=== PATIENT | female | born 1955 | race Caucasian/White ===

== ENCOUNTER 2018-09-13 05:23 | Emergency (ER) | payer MEDICARE, MEDICAID ==
[~2018-09-13] VITALS: Ht 165.1 cm; Wt 100.0 kg
[~2018-09-13 05:23] MED LIST: ACTOS15 MG PO; AMOXICILLIN500 MG OR; CLARITIN10 M1 OR; DEPAKOTE250 MG OR; DIOVAN160 MG OR; DIOVAN40 MG OR; DITROPAN OR; GLIPIZIDE ER5 MG OR; HYDROCHLOROT25 MG OR; LORTAB 5 OR; METFORMIN1000 MG OR; NAPROSYN375 MG PO; PAXIL20 MG OR; SEROQUEL50 MG OR; ZOFRAN4 MG OR
[2018-09-13 06:00] LABS: HEMATOCRIT 40.2 % (37.0-47.0); HEMOGLOBIN 13.1 g/dl (12.0-16.0); IMMATURE GRANULOCYTES 0.3 % (0.0-5.0); MEAN CELL VOLUME 84.5 fL CALC (80.0-100.0); MEAN CORPUSCULAR HGB 27.5 pG CALC (26.0-32.0); MEAN CORPUSCULAR HGB CONC 32.6 g/L CALC (32.0-36.0); NEUT# 8.02 thou/uL (2.00-7.15); RED BLOOD COUNT 4.76 mill/uL (4.20-5.60); RED CELL DISTRI WIDTH 14.6 % (11.5-15.5)
[2018-09-13 06:15] LABS: ALBUMIN 3.8 g/dL (3.2-5.0); ALKALINE PHOSPHATASE 84 u/l (38-126); AMYLASE 36 u/l (30-110); ANION GAP 15 (6-22 (CALC)); BILIRUBIN, TOTAL 1.1 mg/dL (0.0-1.4); BUN 15 mg/dL (8-23); BUN/CREATININE RATIO 38 (12-20 (CALC)); CARBON DIOXIDE 22 mmol/l (22-30); CHLORIDE 104 mmol/l (95-108); CREATININE 0.4 mg/dL (0.5-1.0); GFR > 60 ML/MIN (>=60 (CALC)); GFR FOR AFR.AMER. > 60 ML/MIN (>=60 (CALC)); LIPASE 127 u/l (23-300); POTASSIUM 4.5 mmol/l (3.5-5.1); SODIUM 138 mmol/l (137-146); TOTAL PROTEIN 6.8 g/dL (6.3-8.2)
[2018-09-13 06:18] LABS: SGOT/AST 54 u/l (9-36)
[2018-09-13 06:23] LABS: INTERNATIONAL NORMALIZED RATIO 1.1 RATIO (0.7-1.3); PROTHROMBIN TIME 11.2 SECONDS (9.0-12.5)
[2018-09-13] MEDS ORDERED: LOSARTAN POT100 MG PO (06:24)
[2018-09-13 06:28] LABS: MYOGLOBIN 17 ng/mL (0 - 62)
[2018-09-13 08:35] VITALS: BP 132/91
== END 2018-09-13 08:35 | disposition short-term general hospital (02) ==
LOC: ED 05:23
PROVIDERS: Emergency Medicine
DX: I48.91 Unspecified atrial fibrillation (principal); R10.13 Epigastric pain; E11.65 Type 2 diabetes mellitus with hyperglycemia; I50.9 Heart failure, unspecified; F17.200 Nicotine dependence, unspecified, uncomplicated; Z88.6 Allergy status to analgesic agent

== ENCOUNTER → 2018-12-27 | Outpatient (REF) | payer MEDICARE, MEDICAID ==
[~2018-12-27] MED LIST changes: +LOSARTAN POT100 MG PO
[2018-12-27 10:59] LABS: ALKALINE PHOSPHATASE 66 u/l (38-126); ANION GAP 16 (6-22 (CALC)); BILIRUBIN, TOTAL 0.6 mg/dL (0.0-1.4); BUN 15 mg/dL (8-23); BUN/CREATININE RATIO 25 (12-20 (CALC)); CALCULATED LDLCHOLESTEROL 76 mg/dL (62-129 (CALC)); CHLORIDE 94 mmol/l (95-108); CHOLESTEROL HDL RATIO 2.7 (<4.4 (CALC)); CREATININE 0.6 mg/dL (0.5-1.0); GFR > 60 ML/MIN (>=60 (CALC)); GFR FOR AFR.AMER. > 60 ML/MIN (>=60 (CALC)); HDL CHOLESTEROL 66 mg/dL (>=40); SGOT/AST 19 u/l (9-36); SODIUM 136 mmol/l (137-146); TOTAL CHOLESTEROL 175 mg/dl (0-199); TOTAL PROTEIN 8.1 g/dL (6.3-8.2); TOTAL TRIGLYCERIDES 167 mg/dl (30-149); VLDL CHOLESTROL 33 mg/dl (1-41 (CALC))
[2018-12-27 11:00] LABS: ALBUMIN 4.7 g/dL (3.2-5.0); CARBON DIOXIDE 31 mmol/l (22-30); POTASSIUM 5.3 mmol/l (3.5-5.1)
[2018-12-27 11:28] LABS: TSH, 3RD GENERATION 3.59 uIU/mL (0.47 - 4.68)
== END | disposition home or self-care (01) ==
LOC: LAB 08:47
PROVIDERS: ATTEND Internal Medicine
DX: I48.91 Unspecified atrial fibrillation (principal); I10 Essential (primary) hypertension; I50.9 Heart failure, unspecified; Z79.899 Other long term (current) drug therapy; E78.00 Pure hypercholesterolemia, unspecified; E11.9 Type 2 diabetes mellitus without complications

== ENCOUNTER 2023-05-31 23:47 | Emergency (ER) | payer MEDICARE, MEDICAID ==
[~2023-05-31] VITALS: Ht 165.1 cm; Wt 73.0 kg
[2023-06-01] VITALS (13 sets, daily range): BP systolic 103–144; BP diastolic 52–76
[2023-06-01 00:44] LABS: BASO% 0.3 % (0-3); EOS% 0.2 % (0-8); IMMATURE GRANULOCYTES 0.1 % (0.0-5.0); LYMPH% 16.9 % (15-41); MEAN CELL VOLUME 86.5 fL CALC (80.0-100.0); MEAN CORPUSCULAR HGB CONC 32.3 g/dL CAL (32.0-36.0); MONO% 12.1 % (2-13); NEUT# 8.25 thou/uL (2.00-7.15); NEUT% 70.4 % (42-76); RED BLOOD COUNT 4.29 mill/uL (4.20-5.60); RED CELL DISTRI WIDTH 13.8 % (11.5-15.5)
[2023-06-01 00:53] LABS: HEMATOCRIT 37.1 % (37.0-47.0)
[2023-06-01 01:03] LABS: ALBUMIN 3.8 g/dL (3.2-5.0); BILIRUBIN, TOTAL 0.7 mg/dL (0.02-1.3); BUN 12 mg/dL (8-23); BUN/CREATININE RATIO 18 (12-20 (CALC)); CARBON DIOXIDE 26 mmol/l (22-30); CHLORIDE 94 mmol/l (95-108); CREATININE 0.6 mg/dL (0.5-1.0); GFR FOR AFR.AMER. > 60 ML/MIN (>=60 (CALC)); GFR OTHER RACES > 60 ML/MIN (>=60 (CALC)); POTASSIUM 4.2 mmol/l (3.5-5.1); SGOT/AST 41 u/l (9-36); TOTAL PROTEIN 7.1 g/dL (6.3-8.2)
[2023-06-01 01:09] LABS: ALKALINE PHOSPHATASE 44 u/l (38-126); ANION GAP 10 (6-22 (CALC)); SODIUM 126 mmol/l (137-146)
[2023-06-01 01:54] LABS: URINE BILIRUBIN - DIPSTICK Negative (NEGATIVE); URINE BLOOD DIPSTICK Trace-intact (NEGATIVE); URINE GLUCOSE - DIPSTICK Negative (NEGATIVE); URINE KETONE Negative (NEGATIVE); URINE NITRITE - DIPSTICK Positive (Negative); URINE PH 6.5 (4.5-8.0); URINE SPECIFIC GRAVITY <=1.005
[2023-06-01 02:02] LABS: URINE COLOR Yellow; URINE LEUK ESTERASE Small (NEGATIVE); URINE PROTEIN - DIPSTICK Negative (NEG-TRACE)
[2023-06-01 02:04] LABS: URINE BACTERIA MANY hpf; URINE EPITHELIAL CELLS RARE EPI/hpf (0-FEW)
[2023-06-01] MEDS ORDERED: ULTRAM50 MG PO (03:26)
[2023-06-01] MEDS ORDERED: CEPHALEXIN500 MG PO (03:26)
== END 2023-06-01 07:33 | disposition home or self-care (01) ==
LOC: ED 23:47
PROVIDERS: Emergency Medicine
DX: N39.0 Urinary tract infection, site not specified (principal); B96.20 Unspecified Escherichia coli [E. coli] as the cause of diseases classified elsewhere; S00.93XA Contusion of unspecified part of head, initial encounter; I10 Essential (primary) hypertension; E11.9 Type 2 diabetes mellitus without complications; W19.XXXA Unspecified fall, initial encounter; Z79.84 Long term (current) use of oral hypoglycemic drugs; Z20.822 Contact with and (suspected) exposure to COVID-19

== ENCOUNTER 2024-12-01 10:25 | Observation (INO) | payer MEDICARE, MEDICAID ==
[2024-12-01] VITALS (21 sets, daily range): BP systolic 61–151; BP diastolic 46–100
[~2024-12-01] VITALS: Ht 165.1 cm; Wt 70.1 kg
[~2024-12-01 10:25] MED LIST changes: +CEPHALEXIN500 MG PO; +ULTRAM50 MG PO
--- NOTE | 2024-12-01 10:30 | NUR ---
PATIENT TO ROOM 6 VIA EMS
[2024-12-01 11:15] LABS: ALKALINE PHOSPHATASE 81 u/l (38-126); BUN 19 mg/dL (8-23); BUN/CREATININE RATIO 19 (12-20 (CALC)); CHLORIDE 95 mmol/l (95-108); ESTIMATED GFR 60 ML/MIN (>=90 (CALC)); POTASSIUM 4.5 mmol/l (3.5-5.1); SODIUM 134 mmol/l (137-146)
[2024-12-01 11:17] LABS: BASO% 0.6 % (0-3); EOS% 0.2 % (0-8); HEMATOCRIT 47.6 % (37.0-47.0); HEMOGLOBIN 14.8 g/dl (12.0-16.0); IMMATURE GRANULOCYTES 0.3 % (0.0-5.0); LYMPH% 17.3 % (15-41); MEAN CELL VOLUME 87.7 fL CALC (80.0-100.0); MEAN CORPUSCULAR HGB 27.3 pG CALC (26.0-32.0); MEAN CORPUSCULAR HGB CONC 31.1 g/dL CAL (32.0-36.0); MONO% 12.8 % (2-13); NEUT# 5.94 thou/uL (2.00-7.15); NEUT% 68.8 % (42-76); RED BLOOD COUNT 5.43 mill/uL (4.20-5.60); RED CELL DISTRI WIDTH 13.5 % (11.5-15.5)
[2024-12-01] MEDS ORDERED: cefTRIAXone SODIUM 2 GM in SODIUM CHLORIDE 0.9% 100 ML IV ONE (11:40)
[2024-12-01] MEDS ORDERED: SODIUM CHLORIDE 0.9% 1,000 ML IV ONE (11:40)
[2024-12-01 11:44] LABS: ALBUMIN 4.6 g/dL (3.2-5.0); ANION GAP 19 (6-22 (CALC)); CARBON DIOXIDE 25 mmol/l (22-30); SGOT/AST 88 u/l (9-36); TOTAL PROTEIN 8.5 g/dL (6.3-8.2)
[2024-12-01 11:49] LABS: URINE BLOOD DIPSTICK Trace-intact (NEGATIVE); URINE GLUCOSE - DIPSTICK Negative (NEGATIVE); URINE KETONE 40 mg/dL (NEGATIVE); URINE PROTEIN - DIPSTICK >=300 mg/dL (NEG-TRACE); URINE SPECIFIC GRAVITY 1.025
[2024-12-01 11:51] LABS: URINE COLOR Yellow; URINE LEUK ESTERASE Small (NEGATIVE); URINE NITRITE - DIPSTICK Positive (Negative)
[2024-12-01 11:56] LABS: URINE BACTERIA MANY hpf; URINE SQUAMOUS EPITHELIAL CELL FEW EPI/hpf (0-FEW); URINE WBC 50-100 WBC/hpf (0-5)
[2024-12-01 11:57] LABS: URINE HYALINE CAST FEW lpf (NONE-RARE)
[2024-12-01] MEDS ORDERED: FUROSEMIDE 40 MG/4 ML SDV IV ONE (12:15)
[2024-12-01] MEDS ORDERED: ELIQUIS5 MG PO (12:19)
[2024-12-01] MEDS ORDERED: AMIODARONE HYD200 MG PO (12:20)
[2024-12-01] MEDS ORDERED: ATORVASTATIN CA20 MG PO (12:21)
[2024-12-01] MEDS ORDERED: PEPCID20 MG PO (12:22)
[2024-12-01] MEDS ORDERED: OXYBUTYNIN CHLOR5 M1 PO (12:23)
[2024-12-01] MEDS ORDERED: GLIPIZIDE ER5 M1 PO (12:24)
[2024-12-01] MEDS ORDERED: ARICEPT10 MG PO (12:25)
[2024-12-01] MEDS ORDERED: ALENDRONATE SOD70 MG PO (12:28)
[2024-12-01 13:10] LABS: CPK 30 u/l (30-135)
[2024-12-01] MEDS ORDERED: MAGNESIUM HYDROXIDE 30 ML UDC PO PRN (14:00)
[2024-12-01] MEDS ORDERED: ACETAMINOPHEN 325 MG/TAB PO PRN (14:00)
--- NOTE | 2024-12-01 14:21 | NUR ---
PATIENT ASSISTED TO POSITION OF COMFORT, MEAL TRAY SERVED.
--- NOTE | 2024-12-01 14:44 | NUR ---
BEDSIDE PATIENT CARE SUMMARY TO CHASIDY ELDRIDGE
--- NOTE | 2024-12-01 16:50 | NUR ---
PATIENT PROVIDED WITH CHANGE OF ADULT BRIEF AND PERICARE.
[2024-12-01] MEDS ORDERED: INSULIN LISPRO 100 UNITS/ML ML SC SCH (17:00)
[2024-12-01] MEDS ORDERED: valACYclovir 500 MG TAB PO SCH (17:00)
--- NOTE | 2024-12-01 17:00 | NUR ---
PATIENT TAKEN TO ICU.
--- NOTE | 2024-12-01 18:27 | NUR ---
REPORT RECEIVED FROM LEV LOPEZ ARRIVED ON UNIT @ [id number], ORIENTED TO PERSON AND PLACE, NO C/O PAIN AT THIS TIME, TELE MONITORING IN PROGRESS. SETTLE IN BED, ORIENTED TO ROOM AND CALL [facility].
[2024-12-01] MEDS ORDERED: FUROSEMIDE 40 MG/4 ML SDV IV SCH (21:00)
[2024-12-01] MEDS ORDERED: ENOXAPARIN SODIUM 40 MG/0.4 ML SYR SC SCH (21:00)
[2024-12-01] MEDS ORDERED: DONEPEZIL HCL 5 MG/TAB PO SCH (21:00)
[2024-12-01] MEDS ORDERED: APIXABAN BASE 5 MG TAB PO SCH (21:00)
[2024-12-01] MEDS ORDERED: VALPROIC ACID 250 MG/CAP PO SCH (21:00)
[2024-12-01] MEDS ORDERED: ATORVASTATIN CALCIUM 20 MG/TAB PO SCH (21:00)
--- NOTE | 2024-12-01 21:00 | NUR ---
awake. denies distress. red blistery shingle type areas cont on rt breast around to spine. po fluids taken well. pure wick placed. fall & airborne precautions cont.
[2024-12-02] VITALS (22 sets, daily range): BP systolic 87–158; BP diastolic 50–89
--- NOTE | 2024-12-02 00:01 | NUR ---
eyes closed. no distress.
--- NOTE | 2024-12-02 04:10 | NUR ---
lab here. blood drawn.
[2024-12-02 04:52] LABS: BASO% 0.5 % (0-3); EOS% 0.6 % (0-8); IMMATURE GRANULOCYTES 0.2 % (0.0-5.0); LYMPH% 22.9 % (15-41); MEAN CELL VOLUME 87.1 fL CALC (80.0-100.0); MEAN CORPUSCULAR HGB 27.6 pG CALC (26.0-32.0); MEAN CORPUSCULAR HGB CONC 31.6 g/dL CAL (32.0-36.0); MONO% 17.7 % (2-13); NEUT# 3.69 thou/uL (2.00-7.15); NEUT% 58.1 % (42-76); RED BLOOD COUNT 4.5 mill/uL (4.20-5.60); RED CELL DISTRI WIDTH 13.9 % (11.5-15.5)
[2024-12-02 04:56] LABS: CREATININE 1.5 mg/dL (0.5-1.0); MAGNESIUM 1.9 mg/dL (1.6-2.3)
[2024-12-02 05:09] LABS: HEMATOCRIT 39.2 % (37.0-47.0); HEMOGLOBIN 12.4 g/dl (12.0-16.0)
[2024-12-02 05:15] LABS: ALBUMIN 3.3 g/dL (3.2-5.0); BILIRUBIN, TOTAL 0.4 mg/dL (0.02-1.3); TOTAL PROTEIN 6.3 g/dL (6.3-8.2)
--- NOTE | 2024-12-02 07:15 | NUR ---
PT LAYING IN BED RESTING WITH EYES CLOSED, AROUSES EASILY TO VERBAL STIMULI, PUPILS PERRL, RESP. EVEN AND UNLABORED, LUNG SOUNDS ARE CLEAR, 2L O2 VIA NC, NORMAL S1 S2 HEART SOUNDS, ABD DISTENDED AND SOFT WITH ACTIVE BOWEL SOUNDS, 20G RAC IV SL, STRONG RADIAL AND PEDAL PULSES, SAFETY MEASURES REINFORCED, CALL [facility] WITHIN REACH
[2024-12-02] MEDS ORDERED: HYDROcodone 5 MG/Acetaminophen 325 MG/COMBO PO PRN (07:40)
[2024-12-02] MEDS ORDERED: OXYBUTYNIN 5 MG/TAB PO SCH (09:00)
[2024-12-02] MEDS ORDERED: FAMOTIDINE 20 MG/TAB PO SCH (09:00)
[2024-12-02] MEDS ORDERED: AMIODARONE 200 MG/TAB PO SCH (09:00)
[2024-12-02] MEDS ORDERED: PARoxetine 10 MG/TAB PO SCH (09:00)
--- NOTE | 2024-12-02 12:00 | NUR ---
PT ASSISTED WITH GETTTING SETUP FOR LUNCH, ALL MONITORING EQUIPMENT REAPPLIED, PT REMINDED NOT TO REMOVE MONITORING EQUIPMENT, PT VERBALIZED UNDERSTANDING, SAFETY MEASURES REINFORCED, CALL [facility] WITHIN REACH
--- NOTE | 2024-12-02 16:00 | NUR ---
PT LAYING IN BED WATCHING TV, NO S/S OF DISTRESS AT THIS TIME, PT REMINDED TO CALL FOR ASSISTANCE, CALL [facility] WITHIN REACH
--- NOTE | 2024-12-02 19:45 | NUR ---
awake. denies acute pain. shingles cont to rt chest around to spine. cardiac cath rn was off & replaced. cardiac monitr shows sinus rhythm pvcs. po fluids taken well. purewick cath in place. urine yellow. fall precautions, bed alarm & airborne precautions cont.
--- NOTE | 2024-12-02 23:00 | NUR ---
pt has removed bp cuff, tank charger & pulse ox.
--- NOTE | 2024-12-02 23:54 | NUR ---
eyes closed. no distress. purewick draining well.
[2024-12-03] VITALS (13 sets, daily range): BP systolic 108–151; BP diastolic 67–108
--- NOTE | 2024-12-03 04:00 | NUR ---
lab here. blood drawn.
[2024-12-03 05:40] LABS: HEMATOCRIT 38.9 % (37.0-47.0); HEMOGLOBIN 12.6 g/dl (12.0-16.0); MEAN CELL VOLUME 85.1 fL CALC (80.0-100.0); MEAN CORPUSCULAR HGB 27.6 pG CALC (26.0-32.0); MEAN CORPUSCULAR HGB CONC 32.4 g/dL CAL (32.0-36.0); RED BLOOD COUNT 4.57 mill/uL (4.20-5.60); RED CELL DISTRI WIDTH 13.8 % (11.5-15.5)
[2024-12-03 05:44] LABS: ALBUMIN 3.7 g/dL (3.2-5.0); BILIRUBIN, TOTAL 0.5 mg/dL (0.02-1.3); CREATININE 0.8 mg/dL (0.5-1.0); MAGNESIUM 1.5 mg/dL (1.6-2.3); POTASSIUM 3.6 mmol/l (3.5-5.1)
--- NOTE | 2024-12-03 07:53 | NUR ---
PT REPORT RECEIVED FROM INSPECTOR WELDED PARTS, STATES SHE WAS VERY CONFUSED LAST NIGHT, WALKED INTO ROOM SHE HAD TAKEN ALL HER MONITER LEADS OFF AND PULLED OUT HER IV AND PULLED THE SUCTION CANISTER OFF THE WALL FOR THE PUREWICK HAD IT UPSIDE DOWN ON BED,. PT IS ALERT ONLY. VITAL SIGNS STABLE WHEN SHE WILL LEAVE MONITER LEADS ON
[2024-12-03] MEDS ORDERED: MAGNESIUM SULFATE HEPTAHYDRATE 50 ML IV SCH (08:00)
[2024-12-03] MEDS ORDERED: FUROSEMIDE 40 MG/TAB PO SCH (09:00)
--- NOTE | 2024-12-03 09:25 | NUR ---
new iv placed in right forearm, wrapped coban around it. tried to reoriente pt. went to nurses sstation to answer phone call, went back into room and pt had taken iv out and taken off leads for cardiac moniter and pulse ox. was pulling on tubing for her purewick. placed leads back on and placed pt back into bed with side rails up
--- NOTE | 2024-12-03 11:06 | NUR ---
pt wont stop pulling every moniter lead off that staff places off. gave washcloths to fold to try and reorient pt, but does not work at this time
--- NOTE | 2024-12-03 13:25 | NUR ---
PT SLEEPPING AT THIS TIME. VITAL SIGNS SSTABLE
--- NOTE | 2024-12-03 15:12 | NUR ---
FOUND IV SITE PULLED OUT BY PT WHEN STAFF WALKED INTO ROOM, IV WAS CLUTCHED IN HAND. ALL MONITER LEADS WERE OFF, AND PULSE OX TAKEN OFF AGAIN. PT REFUSED TO LET ME PUT THEM ON AGAIN
--- NOTE | 2024-12-03 20:00 | NUR ---
Report received from [facility]ft nurse. Patient currently off telemetry. RN attempt to restore telemetry monitoring. Patient refused. Education provided. Patient still refuse. Upon assessment, patient had soiled the bed. Bed bath provide and purewick changed. Patient is AOx1. Baseline confused. Call light within reach. Bed alarm on
--- NOTE | 2024-12-03 22:00 | NUR ---
Patient attempted to get up from bed. RN at bedside to provide reorientation and assist patient to back to bed safely. Patient has also pull IV out. Patient state "I will go back to sleep". VS are WNL. No change in reassessment. Bed alarm on. Patient educated to use call light is assistance is needed
[2024-12-04] VITALS: BP 129/82
--- NOTE | 2024-12-04 | NUR ---
Patient sleeping. No changes in reassessment. Bed alarm on. Call light within reach
[2024-12-04 01:00] VITALS: BP 152/84
--- NOTE | 2024-12-04 02:00 | NUR ---
Patient sleeping. Bed alarm on. Call light within reach
[2024-12-04 02:01] VITALS: BP 160/74
[2024-12-04 03:03] VITALS: BP 169/77
--- NOTE | 2024-12-04 04:30 | NUR ---
Patient attempted to climb out of bed. Bed alarm on. RN at bedside to re-orient patient. Patient agree to back to bed. VS WNL. Bed alarm back on.
[2024-12-04 05:36] LABS: HEMATOCRIT 41.4 % (37.0-47.0); HEMOGLOBIN 12.7 g/dl (12.0-16.0); MEAN CELL VOLUME 89.8 fL CALC (80.0-100.0); MEAN CORPUSCULAR HGB 27.5 pG CALC (26.0-32.0); MEAN CORPUSCULAR HGB CONC 30.7 g/dL CAL (32.0-36.0); RED BLOOD COUNT 4.61 mill/uL (4.20-5.60); RED CELL DISTRI WIDTH 14.1 % (11.5-15.5)
[2024-12-04 05:52] LABS: ALBUMIN 3.6 g/dL (3.2-5.0); BILIRUBIN, TOTAL 0.7 mg/dL (0.02-1.3); CREATININE 0.5 mg/dL (0.5-1.0); MAGNESIUM 1.7 mg/dL (1.6-2.3); TOTAL PROTEIN 6.9 g/dL (6.3-8.2)
[2024-12-04 06:02] LABS: POTASSIUM 4.4 mmol/l (3.5-5.1)
--- NOTE | 2024-12-04 07:33 | NUR ---
PT REPORT RECEIVED FROM SPOT MAN. PT REMOVED ALL OF MONITER LEADS AND REMOVED AND REFUSED NEW IV , PT SITTING UP IN BED AT THIS TIME, EATING BREAKFAST, STATES IS READY TO GO HOME TO SEE HER BOYFRIEND, RASH IS STARTIN TO SCAB OVER. VITAL SIGNS STABLE.
[2024-12-04] MEDS ORDERED: VALTREX1 GM PO (07:39)
[2024-12-04] MEDS ORDERED: KEFLEX500 MG PO (07:40)
[2024-12-04 07:41] VITALS: BP 114/85
[2024-12-04 08:18] VITALS: BP 126/66
--- NOTE | 2024-12-04 09:06 | NUR ---
DISCHARGE PAPERS GIVEN TO CAREGIVER, PT PLACED IN W/C AND TAKEN TO CAR. PT /CAREGIVER VOICES UNDERSTANDIGN
== END 2024-12-04 08:45 | disposition home health service (06) ==
LOC: ED 10:25 → ED-I 12:03 → ED 13:50 → ICU 13:51
PROVIDERS: Family Medicine; Nurse Practitioner Family; ADMIT Internal Medicine; ATTEND Internal Medicine
DX: N39.0 Urinary tract infection, site not specified (principal); B96.20 Unspecified Escherichia coli [E. coli] as the cause of diseases classified elsewhere; N17.9 Acute kidney failure, unspecified; I11.0 Hypertensive heart disease with heart failure; I50.9 Heart failure, unspecified; B02.9 Zoster without complications; F03.911 Unspecified dementia, unspecified severity, with agitation; F79 Unspecified intellectual disabilities; E11.9 Type 2 diabetes mellitus without complications; I25.10 Atherosclerotic heart disease of native coronary artery without angina pectoris; I48.91 Unspecified atrial fibrillation; Z79.84 Long term (current) use of oral hypoglycemic drugs; Z95.5 Presence of coronary angioplasty implant and graft; Z95.2 Presence of prosthetic heart valve; Z79.01 Long term (current) use of anticoagulants; Z20.822 Contact with and (suspected) exposure to COVID-19
CPT/HCPCS: J0696; J1815; J1940; J3475; Q9967

== ENCOUNTER 2024-12-04 12:28 | Inpatient (IN) | payer MEDICARE, MEDICAID ==
[~2024-12-04] VITALS: Ht 152.4 cm; Wt 73.0 kg
[2024-12-04] VITALS (15 sets, daily range): BP systolic 116–173; BP diastolic 58–118
[~2024-12-04 12:28] MED LIST changes: +ALENDRONATE SOD70 MG PO; +AMIODARONE HYD200 MG PO; +ARICEPT10 MG PO; +ATORVASTATIN CA20 MG PO; +ELIQUIS5 MG PO; +GLIPIZIDE ER5 M1 PO; +KEFLEX500 MG PO; +OXYBUTYNIN CHLOR5 M1 PO; +PEPCID20 MG PO; +VALTREX1 GM PO
[2024-12-04 13:42] LABS: BASO% 0.4 % (0-3); EOS% 0.6 % (0-8); HEMATOCRIT 43.5 % (37.0-47.0); HEMOGLOBIN 13.3 g/dl (12.0-16.0); IMMATURE GRANULOCYTES 0.1 % (0.0-5.0); MEAN CELL VOLUME 87.9 fL CALC (80.0-100.0); MEAN CORPUSCULAR HGB 26.9 pG CALC (26.0-32.0); MEAN CORPUSCULAR HGB CONC 30.6 g/dL CAL (32.0-36.0); MONO% 16.1 % (2-13); NEUT# 4.36 thou/uL (2.00-7.15); NEUT% 48.8 % (42-76); RED BLOOD COUNT 4.95 mill/uL (4.20-5.60); RED CELL DISTRI WIDTH 14.1 % (11.5-15.5)
[2024-12-04 13:53] LABS: ALBUMIN 4.1 g/dL (3.2-5.0); ALKALINE PHOSPHATASE 84 u/l (38-126); ANION GAP 13 (6-22 (CALC)); BILIRUBIN, TOTAL 0.5 mg/dL (0.02-1.3); BUN 27 mg/dL (8-23); BUN/CREATININE RATIO 30 (12-20 (CALC)); CARBON DIOXIDE 29 mmol/l (22-30); CHLORIDE 98 mmol/l (95-108); CREATININE 0.9 mg/dL (0.5-1.0); ESTIMATED GFR 68 ML/MIN (>=90 (CALC)); LIPASE 133 u/l (23-300); POTASSIUM 3.5 mmol/l (3.5-5.1); SGOT/AST 88 u/l (9-36); SODIUM 136 mmol/l (137-146); TOTAL PROTEIN 7.9 g/dL (6.3-8.2)
[2024-12-04] MEDS ORDERED: Zaleplon 5 MG/CAP PO PRN (17:40)
[2024-12-04] MEDS ORDERED: ACETAMINOPHEN 325 MG/TAB PO PRN (17:40)
[2024-12-04] MEDS ORDERED: MAGNESIUM HYDROXIDE 30 ML UDC PO PRN (17:40)
[2024-12-04] MEDS ORDERED: ATORVASTATIN CALCIUM 20 MG/TAB PO SCH (21:00)
[2024-12-04] MEDS ORDERED: APIXABAN BASE 5 MG TAB PO SCH (21:00)
[2024-12-04] MEDS ORDERED: valACYclovir 500 MG TAB PO SCH (21:00)
[2024-12-04] MEDS ORDERED: ENOXAPARIN SODIUM 40 MG/0.4 ML SYR SC SCH (21:00)
[2024-12-04] MEDS ORDERED: INSULIN LISPRO 100 UNITS/ML ML SC SCH (21:00)
[2024-12-04 23:34] LABS: BASO% 0.4 % (0-3); EOS% 0.9 % (0-8); HEMATOCRIT 38.6 % (37.0-47.0); HEMOGLOBIN 12.1 g/dl (12.0-16.0); IMMATURE GRANULOCYTES 0.1 % (0.0-5.0); MEAN CELL VOLUME 86.5 fL CALC (80.0-100.0); MEAN CORPUSCULAR HGB 27.1 pG CALC (26.0-32.0); MEAN CORPUSCULAR HGB CONC 31.3 g/dL CAL (32.0-36.0); MONO% 16.3 % (2-13); NEUT# 2.85 thou/uL (2.00-7.15); RED BLOOD COUNT 4.46 mill/uL (4.20-5.60); RED CELL DISTRI WIDTH 13.9 % (11.5-15.5)
[2024-12-04 23:46] LABS: ALBUMIN 3.7 g/dL (3.2-5.0); ALKALINE PHOSPHATASE 68 u/l (38-126); ANION GAP 8 (6-22 (CALC)); BILIRUBIN, TOTAL 0.4 mg/dL (0.02-1.3); BUN 25 mg/dL (8-23); BUN/CREATININE RATIO 40 (12-20 (CALC)); CALCULATED LDLCHOLESTEROL 34 mg/dL (62-129 (CALC)); CARBON DIOXIDE 31 mmol/l (22-30); CHLORIDE 102 mmol/l (95-108); CHOLESTEROL HDL RATIO 1.7 (<4.4 (CALC)); CREATININE 0.6 mg/dL (0.5-1.0); ESTIMATED GFR 96 ML/MIN (>=90 (CALC)); HDL CHOLESTEROL 66 mg/dL (39.0-59.0); POTASSIUM 3.7 mmol/l (3.5-5.1); SGOT/AST 73 u/l (9-36); SODIUM 137 mmol/l (137-146); TOTAL CHOLESTEROL 111 mg/dl (0-199); TOTAL PROTEIN 7.1 g/dL (6.3-8.2); TOTAL TRIGLYCERIDES 56 mg/dl (0-149); VLDL CHOLESTROL 11 mg/dl (0-48 (CALC))
[2024-12-04 23:50] LABS: INTERNATIONAL NORMALIZED RATIO 1.1 RATIO (0.7-1.3)
[2024-12-04 23:53] LABS: LYMPH% 44.3 % (15-41)
[2024-12-04 23:54] LABS: PROTHROMBIN TIME 11.6 SECONDS (9.0-12.5)
[2024-12-05] VITALS (23 sets, daily range): BP systolic 127–196; BP diastolic 76–101
[2024-12-05 05:53] LABS: CALCULATED LDLCHOLESTEROL 31 mg/dL (62-129 (CALC)); CHOLESTEROL HDL RATIO 1.5 (<4.4 (CALC)); HDL CHOLESTEROL 77 mg/dL (39.0-59.0); TOTAL CHOLESTEROL 119 mg/dl (0-199); TOTAL TRIGLYCERIDES 53 mg/dl (0-149); VLDL CHOLESTROL 11 mg/dl (0-48 (CALC))
[2024-12-05] MEDS ORDERED: DEXTROSE 250 ML IV PRN (07:20)
[2024-12-05] MEDS ORDERED: PARoxetine 10 MG/TAB PO SCH (09:00)
[2024-12-05] MEDS ORDERED: AMIODARONE 200 MG/TAB PO SCH (09:00)
[2024-12-05] MEDS ORDERED: ACYCLOVIR SODIUM 800 MG in SODIUM CHLORIDE 0.9% 250 ML IV SCH (14:30)
[2024-12-06] VITALS (7 sets, daily range): BP systolic 120–177; BP diastolic 62–89
[2024-12-06 05:09] LABS: HEMATOCRIT 42.8 % (37.0-47.0); HEMOGLOBIN 12.9 g/dl (12.0-16.0); MEAN CELL VOLUME 90.9 fL CALC (80.0-100.0); MEAN CORPUSCULAR HGB 27.4 pG CALC (26.0-32.0); MEAN CORPUSCULAR HGB CONC 30.1 g/dL CAL (32.0-36.0); RED BLOOD COUNT 4.71 mill/uL (4.20-5.60); RED CELL DISTRI WIDTH 14.3 % (11.5-15.5)
[2024-12-06 05:25] LABS: CREATININE 0.5 mg/dL (0.5-1.0)
[2024-12-06 05:26] LABS: ALBUMIN 3.3 g/dL (3.2-5.0); MAGNESIUM 1.7 mg/dL (1.6-2.3); TOTAL PROTEIN 6.8 g/dL (6.3-8.2)
[2024-12-06 05:31] LABS: POTASSIUM 4.5 mmol/l (3.5-5.1)
[2024-12-06] MEDS ORDERED: SODIUM CHLORIDE 0.9% 1,000 ML IV SCH (11:00)
[2024-12-06] MEDS ORDERED: SODIUM CHLORIDE 0.9% 2,000 ML IV SCH (13:00)
[2024-12-06] MEDS ORDERED: VANCOMYCIN HCL 1,250 MG in SODIUM CHLORIDE 0.9% 225 ML IV SCH (14:00)
[2024-12-06 14:04] LABS: URINE BILIRUBIN - DIPSTICK Negative (NEGATIVE); URINE BLOOD DIPSTICK Negative (NEGATIVE); URINE GLUCOSE - DIPSTICK 250 mg/dL (NEGATIVE); URINE KETONE Negative (NEGATIVE); URINE LEUK ESTERASE Negative (NEGATIVE); URINE NITRITE - DIPSTICK Negative (Negative); URINE PROTEIN - DIPSTICK 100 mg/dL (NEG-TRACE); URINE SPECIFIC GRAVITY 1.015; URINE UROBILINOGEN - DIPSTICK 0.2 E.U./dL (0.2)
[2024-12-06 14:11] LABS: URINE COLOR Yellow
[2024-12-06 14:12] LABS: URINE WBC 0-2 WBC/hpf (0-5)
[2024-12-06 14:13] LABS: URINE BACTERIA FEW hpf; URINE SQUAMOUS EPITHELIAL CELL MODERATE EPI/hpf (0-FEW)
[2024-12-06] MEDS ORDERED: valACYclovir 500 MG TAB PO SCH (15:00)
[2024-12-06] MEDS ORDERED: CEFEPIME HYDROCHLORIDE 2 GM in SODIUM CHLORIDE 0.9% 100 ML IV SCH (16:00)
[2024-12-07 04:08] VITALS: BP 128/83
[2024-12-07 05:13] LABS: BASO% 0.3 % (0-3); HEMATOCRIT 35.6 % (37.0-47.0); HEMOGLOBIN 11.2 g/dl (12.0-16.0); IMMATURE GRANULOCYTES 0.1 % (0.0-5.0); MEAN CELL VOLUME 88.8 fL CALC (80.0-100.0); MEAN CORPUSCULAR HGB 27.9 pG CALC (26.0-32.0); MEAN CORPUSCULAR HGB CONC 31.5 g/dL CAL (32.0-36.0); MONO% 9.8 % (2-13); NEUT# 5.61 thou/uL (2.00-7.15); NEUT% 64.8 % (42-76); RED BLOOD COUNT 4.01 mill/uL (4.20-5.60)
[2024-12-07 05:18] LABS: ALBUMIN 2.8 g/dL (3.2-5.0); BILIRUBIN, TOTAL 0.7 mg/dL (0.02-1.3); CREATININE 0.9 mg/dL (0.5-1.0); MAGNESIUM 1.5 mg/dL (1.6-2.3); POTASSIUM 3.8 mmol/l (3.5-5.1); TOTAL PROTEIN 5.7 g/dL (6.3-8.2)
[2024-12-07 07:07] VITALS: BP 166/80
[2024-12-07 10:44] VITALS: BP 183/91
[2024-12-07 10:58] VITALS: BP 174/93
[2024-12-07] MEDS ORDERED: hydrALAZINE HCL 20 MG/ML VIAL(1 ML) IV PRN (11:40)
[2024-12-07 15:29] VITALS: BP 174/82
[2024-12-07 18:13] VITALS: BP 177/90
[2024-12-08 00:29] VITALS: BP 166/85
[2024-12-08 04:29] LABS: BASO% 0.2 % (0-3); EOS% 3.4 % (0-8); HEMATOCRIT 38.4 % (37.0-47.0); HEMOGLOBIN 12.3 g/dl (12.0-16.0); IMMATURE GRANULOCYTES 0.2 % (0.0-5.0); LYMPH% 21.9 % (15-41); MEAN CELL VOLUME 86.1 fL CALC (80.0-100.0); MEAN CORPUSCULAR HGB 27.6 pG CALC (26.0-32.0); NEUT# 5.56 thou/uL (2.00-7.15); NEUT% 64.3 % (42-76); RED BLOOD COUNT 4.46 mill/uL (4.20-5.60); RED CELL DISTRI WIDTH 13.7 % (11.5-15.5)
[2024-12-08 04:45] LABS: ALBUMIN 3.2 g/dL (3.2-5.0); BILIRUBIN, TOTAL 0.8 mg/dL (0.02-1.3); CREATININE 0.7 mg/dL (0.5-1.0); MAGNESIUM 1.4 mg/dL (1.6-2.3); POTASSIUM 3.5 mmol/l (3.5-5.1); TOTAL PROTEIN 6.3 g/dL (6.3-8.2)
[2024-12-08 05:10] VITALS: BP 168/88
[2024-12-08 08:23] VITALS: BP 150/87
[2024-12-08 09:08] VITALS: BP 150/87
[2024-12-08] MEDS ORDERED: MAGNESIUM SULFATE HEPTAHYDRATE 50 ML IV SCH (10:30)
[2024-12-08] MEDS ORDERED: MAGNESIUM OXIDE 400 MG/TAB PO SCH (11:00)
== END 2024-12-08 13:04 | DRG 71 ==
LOC: ED 12:28 → ED-I 16:10 → ED 17:02 → MS2 17:03 → ICU 17:03 → MS2 17:49 → ICU 12-05 06:45 → MS2 12-05 10:27 → ICU 12-05 10:27 → MS2 12-05 17:00
PROVIDERS: Internal Medicine; Nurse Practitioner; ADMIT Internal Medicine; ATTEND Internal Medicine
DX: G93.41 Metabolic encephalopathy (principal); N39.0 Urinary tract infection, site not specified; B02.9 Zoster without complications; I11.0 Hypertensive heart disease with heart failure; I50.9 Heart failure, unspecified; E11.9 Type 2 diabetes mellitus without complications; E78.5 Hyperlipidemia, unspecified; I48.91 Unspecified atrial fibrillation; F03.90 Unspecified dementia, unspecified severity, without behavioral disturbance, psychotic disturbance, mood disturbance, and anxiety; R62.7 Adult failure to thrive; F79 Unspecified intellectual disabilities; K21.9 Gastro-esophageal reflux disease without esophagitis; Z95.2 Presence of prosthetic heart valve; Z79.84 Long term (current) use of oral hypoglycemic drugs; Z79.01 Long term (current) use of anticoagulants; Z74.2 Need for assistance at home and no other household member able to render care
CPT/HCPCS: J0133; J0692; J0696; J1815; J3370; J3475